=== PATIENT | male | born 1960 | race Caucasian/White ===

== ENCOUNTER 2019-10-25 05:39 | Day surgery (SDC) | payer SELFPAY, OTHER ==
[2019-10-10 08:49] VITALS: BMI 33.0
--- NOTE | 2019-10-10 09:25 | HP_ITS ---
Intake Vital Signs 10/10/19 Height 5 ft 10 in 10/10/19 Weight: 230 lb 9 oz 10/10/19 BMI 33.0 10/10/19 BP 117/72 10/10/19 Blood Pressure Location Rt brachial 10/10/19 Position Sitting 10/10/19 Respiration 18 10/10/19 Pulse 78 10/10/19 Temp 98.1 F 10/10/19 Temp Source Temporal 10/10/19 Pulse Oximetry (%) 97 Intake Visit Reasons: Inguinal hernia Chief Complaint: right inguinal hernia Cargo Surveyor Required: No Is patient in pain?: No Allergies No Known Allergies Allergy (Verified 10/10/19 08:50) Medications multivitamin,sf-hjqm-dnnkdema 1 tab PO DAILY 10/10/19 [History] PFSH Medical History (Updated 10/10/19 @ 08:48 by Bre Parkinson) Right inguinal hernia (Acute) HTN (hypertension) (Chronic) Surgical History (Updated 10/10/19 @ 08:48 by Bre Parkinson) History of eye surgery (Acute) History of knee replacement (Acute ~05/2017) Family History (Updated 10/10/19 @ 08:49 by Bre Parkinson) Father Hypertension Social History (Updated 10/10/19 @ 09:[address] Jovi Ibarra MD) Smoking Status: Never smoker HPI HPI HPI: BRITTANY THURSTON, is a 59 M who presents to the office today for HPI HPI Surgical H&P: Yes HPI: BRITTANY THURSTON, is a 59 M who presents to the office today for Right groin bulging. Patient reports for the last 2 to 3 weeks he is felt groin bulging and this is gotten worse and it is causing him tenderness especially with coughing sneezing and eating a lot of food. Patient reports that the bulge does go down when he lays down. The patient is also having bulging at his umbilicus. He has no discomfort or bulging on the contralateral side. ROS General General: No weight change, appetite, fatigue, colon cancer, breast cancer or weakness HEENT HEENT: No difficulty swallowing, eye injury, eye surgery, swollen glands or hoarseness Endo Endocrine: No thyroid disease, diabetes mellitus, thyroid cancer, Hair loss, heat intolerance or cold intolerance Musc Musculoskeletal: No back problems, arthritis, rheumatoid arthritis, gout or joint pain Cardio Cardiovascular: Yes high blood pressure; no murmur, pacemaker, heart disease, atrial fibrillation, heart attack, heart stent, palpitations, shortness of breat with exertion or chest pain Psych Psychiatric: No depression, anxiety or hearing voices Resp Respiratory: No shortness of breath, No sleep apnea, No cough, No COPD, No asthma, No emphysema, No wheezing Gastro Gastrointestinal: No abdominal pain, No nausea or vomiting, No diarrhea, No constipation, No blood in stool, No acid reflux, No hemorrhoids, No ulcers, No gallbladder problem, No black,tarry stools Additional Details: Right groin bulging and umbilical bulging Diego Hematologic: No blood thinners, No blood disorders, No bleeding, No anemia, No blood clots Neuro Neurologic: No weakness Exam Const General: cooperative Orientation: alert, oriented x3 HENMT Head: normal to inspection Ears: hearing grossly normal bilaterally Eyes General: appearance normal, both eyes and all related structures Visual Guzman: normal visual guzman by confrontation Neck Neck: normal visual inspection Chest Chest palpation & inspection: normal inspection of the chest Resp Effort & Inspection: normal respiratory effort Auscultation: clear to auscultation bilaterally Cardio Rate: regular rate Rhythm: regular rhythm Heart Sounds: no murmurs GI Inspection: non-distended Palpation: soft, hernia indirect inguinal on the right and umbilical, nontender Musc Cervical Spine: normal cervical lordosis, cervical ROM normal Skin General: no rashes or lesions noted Neuro General: alert, oriented x3 Cranial Nerves: CN's II-XI intact bilaterally Cognition: normal cognition Extrem General: normal to inspection, full ROM Psych Appearance: grossly normal Affect: normal affect Assessment & Plan Problems 1. Umbilical hernia without obstruction and without gangrene K42.9 2. Inguinal hernia, right K40.90 Plan The patient has a symptomatic right inguinal hernia which she would like to fix. I discussed open and laparoscopic repair. The patient opted for laparoscopic repair. I discussed robotic assisted laparoscopic right inguinal hernia repair with mesh. I discussed the risks including but not limited to bleeding, infection, injury to surrounding organs, injury to spermatic cord, chronic groin pain. I did discuss mesh placement with the patient as well as possibility of inflammation and groin pain due to mesh. The patient also has an umbilical hernia. Patient does not know if he would like this umbilical hernia fixed yet. He is seeking the [email or web address] to see if he would like the umbilical hernia repaired. I discussed umbilical hernia repair with mesh as well. Patient will decide tomorrow and call us to determine if he will have umbilical hernia repaired at the same time. I also discussed the possibility of a left inguinal hernia upon direct inspection and the patient would like a left inguinal hernia repaired if it is present. We discussed the current risks associated with COVID-19. While it is understood that there is a community spread of COVID-19, the risk of max COVID-19 while at [facility] ([facility]) is very low; however, the risk cannot be completely mitigated because of the community spread of the disease. We discussed in detail the risk of exposure to and/or potential harm posed by the COVID-19 virus with having a surgery/procedure at this time versus the risk of delaying the surgery/procedure. It is not possible to know either the risk of delaying the surgery or procedure or chance of getting an infection with perfect accuracy, but a joint decision was made to proceed at this time with the scheduled surgery/procedure as indicated on the consent form. Patient was notified that we will need to comply with any screening or testing [facility] wishes to perform or that surgery may be delayed for any positive results. Jovi Ibarra MD Pager: [facility] [address] [place] [address], [address] [place] [address] Office: Coding Level of Care Code Off vis,new,level 4 Diagnoses Umbilical hernia without obstruction and without gangrene K42.9 ??Obstruction and gangrene presence: without obstruction or gangrene Inguinal hernia, right K40.90 Time Spent (min) 45 10/10/19 2599 <Electronically signed by Jovi rodriguez MD> Date _ Jovi Ibarra MD I have re-examined the patient. There are no clinical changes since date of exam. The patient has decided that he would like his umbilical hernia repaired. I described open umbilical hernia repair to the patient with possible mesh. I explained that usually the umbilicus is too low for a camera port site and I would estimate an additional incision superior to the umbilicus for the camera and he understands and is willing to proceed.
--- NOTE | 2019-10-18 16:11 | EKG12_ITS ---
Test Reason : PRE OP Blood Pressure : / mmHG Vent. Rate : 077 BPM Atrial Rate : 077 BPM P-R Int : 146 ms QRS Dur : 090 ms QT Int : 378 ms P-R-T Axes : 028 050 022 degrees QTc Int : 427 ms Sinus rhythm with Premature atrial complexes Otherwise normal ECG Confirmed by MYA CARRERA, CHANDAN ([id number]), video effects editor BRITANY TIAN ([id number]) on 10/19/2019 8:51:10 AM Referred By: Jovi Ibarra Confirmed By:CHANDAN ROQUE MD
[2019-10-18 17:04] LABS: Anion Gap 4 (5-15); BUN 33 mg/dL (7-18); BUN/Creat Ratio 33.6 RATIO (10-20); Calcium,Total 8.9 mg/dL (8.5-10.1); Chloride 109 mmol/L (98-107); Creatinine, Serum 0.98 mg/dL (0.70-1.30); EST Glomerular Filtration Rate 83 mL/min (>60); Est Glom Filt Rate - Afr Amer 100 mL/min (>60); Glucose 97 mg/dL (74-106); Potassium 4.1 mmol/L (3.5-5.1); Sodium Level 138 mmol/L (136-145)
[2019-10-25 06:21] VITALS: BP 115/71; PULSE 69; RESP 16; TEMP 36.8; O2SAT 97; BMI 33.0
[2019-10-25] MEDS: Lactated Ringers 1,000 ML 100 ML IV ×2 (07:02→07:05)
--- NOTE | 2019-10-25 07:30 | HERN_PTH ---
PATIENT: BRITTANY THURSTON LOC: [facility] [place] [place] U#:[id number] AGE/SX: 59/M ROOM: RE10/25/[address]: Dr. Jovi Ibarra MD : 1960 BED: DIS: 10/25/2019 SPEC #: [id number] RECD: 10/25/19 09:54 STATUS: MILLICENT MADYSON #: [id number] MELODIE: 10/25/19 07:[address]: Jovi Ibarra DEPT: SURGICAL PATHOLOGY RECD BY: Cecilia Levin ENTERED: 10/25/19 14:42 SP TYPE: Hernia OTHR DR: Dr. Antonio Jordan DO Tissues: LIPOMA OF CORD Procedures: Surgery Specimen Level III HEADER OPERATION: Lap robotic inguinal hernia, right, umbilical hernia repair PRE-OP DIAGNOSIS: Umbilical hernia; right inguinal hernia TISSUE SUBMITTED: Lipoma of hernia cord MICROSCOPIC DIAGNOSIS Lipoma of hernia cord, excision: Mature adipose tissue consistent with lipoma of cord. AM:zulema 10/26/19 MICROSCOPIC DESCRIPTION Slides are reviewed. GROSS DESCRIPTION Received in fixative is one container labeled with the patient's name and designated lipoma of hernia sac. The specimen consists of multiple irregular fragments of yellow fatty tissue that in aggregate measure 7 x 6 x 1 cm. Serial sections reveal yellow cut surfaces. Tag Marker sections are submitted in one cassette. / AM:zulema 10/25/19 TC:1 CPT: 16414
[2019-10-25] MEDS: Cefazolin 2 GM in 0.9% Normal Saline 100 ML IV (07:31)
[2019-10-25] MEDS: Bupivacaine Mpf 0.5% 30 ML VIAL (08:00)
[2019-10-25 09:33] VITALS: BP 115/71; BP 117/72; PULSE 79; RESP 16; TEMP 35.8; O2SAT 94
--- NOTE | 2019-10-25 09:38 | OP.PCM_ITS ---
Problem List (1) Right inguinal hernia Status: Acute (2) Umbilical hernia Status: Acute Qualifiers: Obstruction and gangrene presence: without obstruction or gangrene Qualified Code(s): K42.9 - Umbilical hernia without obstruction or gangrene Report of Operation Date of Procedure: 10/25/19 Pre-Operative Diagnosis: 1. Right inguinal hernia. 2. Umbilical hernia Post-Operative Diagnosis: Same Surgery/Procedure Performed:: 1. Robotic assisted laparoscopic right inguinal hernia repair with mesh. 2. Umbilical hernia repair Specimen's removed: Lipoma of right inguinal canal Description of Procedure: Patient was brought back to the operating room and general anesthesia was induced. The abdomen was prepped and draped in usual sterile fashion. A small midline incision was created superior to the umbilicus and deepened to the fascia. The fascia was grasped and elevated and a Veress needle was placed in the abdomen and a drop test was performed. The abdomen was insufflated to 15 mmHg. The Veress needle was then removed and the camera port was placed into the abdomen. The camera was used to inspect the abdomen there were no injuries. The patient was placed in a Trendelenburg position and the inguinal canals were inspected. The left inguinal canal was intact with no hernia. The patient had a large right indirect inguinal hernia. Under direct visualization a right lateral abdominal port was placed as well as a left lateral abdominal port. The robot was then docked. Using electrocautery scissors the peritoneum was scored in the right inguinal region. Dissection was carried inferiorly until the hernia sac was encountered. The hernia sac was reduced and the adhesions were lysed. The patient also had a large lipoma in the right inguinal canal which was removed. Next pro-line construction supervisor mesh was placed over the inguinal canal and unfolded. The peritoneum was reapproximated using 3-0 V lock suture. There was a small opening in the peritoneum which was covered with the hernia sac and closed using interrupted 4-0 Vicryl suture. There was good coverage of the mesh with complete coverage at the end of the case. Next the robot was undocked. The camera port was removed. Using a Temo Jara needle under direct visualization an 0 Vicryl suture was used to close the fascia of the midline incision. Next the ports were removed and the air was allowed to desufflate from the abdomen. Next attention was paid to the umbilical hernia. A curvilinear incision was made inferior to the umbilicus and deepened to the hernia using electrocautery. The hernia was reduced and the defect was inspected and was less than 1 cm. 2 pnqsrv-ea-ejpvl 2-0 sutures were used to close the umbilical defect in a transverse fashion. Next all the incisions were injected with local anesthetic and closed with interrupted 4-0 Monocryl sutures as well as Steri-Strips and bandages. Patient was awoken and taken to PACU in stable condition and tolerated the procedure well. Grafts/Implants Used: Pro-line construction supervisor mesh in the right inguinal hernia - Admit VTE Documentation VTE Mechan Device Prophylaxis: SCD's
--- NOTE | 2019-10-25 09:44 | DCINST_ITS ---
Discharge Diet: Light diet - advance as tolerated Discharge Activity: Return to Normal Activity, May Not Drive - for 2-3 days or while taking narcotic pain meds., May Shower - with the bandage in place 1-2 days after surgery. Lifting Restrictions: 20 pounds for 4 weeks. Additional Activity Instructions:: Climbing stairs is fine, walking is encouraged. Sitting in bed may be uncomfortable. Sitting up using your lateral muscles (sitting up sideways) is usually more comfortable. Do not drive, work heavy equipment of sign legal documents for 24 hours. If your hernia repair was an ingunial repair, you may have scrotal swelling, an ice pack and/or athletic support can provide more comfort. Pain medications may cause nausea, you should typically eat light foods as you take your pain medications. Pain medications may also cause constipation. If you have difficulty with this, discuss with your doctor. Call your doctor if your incision/area has: Continuous Slow Oozing, Sudden Increased Bleeding, Increased Pain/ Swelling, Increased Redness, Foul Smelling Discharge Call your doctor if you observe: Fever of 101 or Higher Suture Line Care: Avoid Pulling/Pushing, Avoid Pinching/Bending Change Dressing in (Days):: 3 - Leave steri-strips for 1 week. May protect with a guaze bandaid. Cleanse incision/area with: Keep Dressing Clean & Dry Allergies/Adverse Reactions: Allergies No Known Allergies Allergy (Verified 10/17/19 13:03) Medications to take at Discharge multivitamin,jo-norg-mwwmwomh 1 tab PO DAILY 10/10/19 Lisinopril 20 mg PO DAILY 10/17/19 Oxycodone HCl/Acetaminophen [Percocet 5-325 mg Tablet] 1 tab PO Q6H PRN 4 Days #15 tablet 10/25/19 The following prescriptions were given: Oxycodone HCl/Acetaminophen [Percocet 5-325 mg Tablet] 1 tab PO Q6H PRN 4 Days #15 tablet PRN Reason: Pain Score 4-10/10 Transmission Status: Sent to [facility] Primary Care Physician: Antonio Jordan DO [Primary Care Provider] - Test Results: Test results from this visit will be discussed in further detail at your follow- up appointment, if applicable. Please Follow Up With: Jovi Ibarra MD When: Please call to schedule 2 week follow up appointment. [phone]
[2019-10-25 09:45] VITALS: BP 104/66; BP 115/71; PULSE 67; RESP 16; O2SAT 89
[2019-10-25 10:00] VITALS: BP 115/71; BP 98/59; PULSE 57; RESP 16; O2SAT 94
[2019-10-25 10:15] VITALS: BP 110/72; BP 115/71; PULSE 96; RESP 16; TEMP 36; O2SAT 96
[2019-10-25] MEDS: Acetaminophen 325 MG Tablet PO (10:55)
[2019-10-25] MEDS: oxyCODONE 5 MG Tablet PO (10:55)
[2019-10-25 11:45] VITALS: BP 115/71; BP 123/71; PULSE 62; RESP 16; TEMP 36.3; O2SAT 96
== END 2019-10-25 11:58 | disposition home or self-care (01) ==
LOC: SDC 05:40 → AC 05:41
PROVIDERS: Anesthesiology; PCP Family Medicine; Referring Provider Surgery; Visit Provider Surgery
PROC: (CPT 49585; principal; 2019-10-25 07:10)
DX: K40.90 Unilateral inguinal hernia, without obstruction or gangrene, not specified as recurrent (principal); K42.9 Umbilical hernia without obstruction or gangrene; D17.6 Benign lipomatous neoplasm of spermatic cord; I49.1 Atrial premature depolarization; I10 Essential (primary) hypertension; E78.00 Pure hypercholesterolemia, unspecified; Z79.899 Other long term (current) drug therapy; Z20.828 Contact with and (suspected) exposure to other viral communicable diseases
CPT/HCPCS: 00840; 49585; 49650; S2900; 36415; 80048; 87635; 88304; 93005; G2023; J7120; J2405; U0003

== ENCOUNTER → 2020-07-13 14:11 | Outpatient (CLI) | payer OTHER, SELFPAY ==
[2020-07-13 15:23] LABS: Absolute Lymphocyte Count 1.59 X10^3/uL (0.83-4.51); Absolute Neutrophil Count 7.4 X10^3/uL (2.0-7.7); Basophil# 0.05 X10^3/uL; Basophil% 0.5 % (0-1); Eosinophil# 0.37 X10^3/uL; Eosinophils% 3.7 % (0-5); Hematocrit 41.3 % (40-54); Hemoglobin 13.4 g/dL (13.0-16.5); Lymphocyte # 1.59 X10^3/ul (0.83-4.51); Lymphocyte % 15.9 % (19-41); Mean Corp Hgb Conc 32.4 g/dL (32-36); Mean Corpuscular Hgb 28.6 pg (27.0-32.0); Mean Corpuscular Volume 88.2 fL (80-94); Mean Platelet Vol. 11.2 fl (6.2-12.0); Monocyte# 0.62 X10^3/uL; Monocyte% 6.2 % (0-10); NRBC Flagged by Analyzer 0 % (0-5); Neutrophil # 7.36 X10^3/uL (2.7-7.7); Neutrophil % 73.4 % (47-70); Platelet Count 287 K/mm3 (150-450); RBC Distribution Width CV 12.8 % (11.6-14.6); RBC Distribution Width SD 41.2 fl (35.1-43.9); Red Blood Count 4.68 M/mm3 (4.6-6.2)
[2020-07-13 15:43] LABS: Erythrocyte Sedimentation Rate 11 mm/hr (0-20)
[2020-07-13 15:53] LABS: CRP 5.37 mg/L (0.0-3.0)
== END ==
PROVIDERS: PCP Family Medicine; Referring Provider Orthopaedic Surgery; Visit Provider Orthopaedic Surgery
DX: M25.461 Effusion, right knee (principal)
CPT/HCPCS: 36415; 85025; 85652; 86140

== ENCOUNTER 2024-07-07 08:07 | Emergency (ER) | payer OTHER, SELFPAY ==
[2024-07-07 08:07] VITALS: BP 153/98; PULSE 109; RESP 23; TEMP 36.7; O2SAT 96; BMI 35.1
--- NOTE | 2024-07-07 08:32 | CT_ITS ---
EXAM: CT Head Without Intravenous Contrast CLINICAL INDICATION: REPORTED HALLUCINATIONS TECHNIQUE: Axial computed tomography images of the head/brain without intravenous contrast. This CT exam was performed using one or more of the following dose reduction techniques: automated exposure control, adjustment of the mA and/or kV according to patient size, and/or use of iterative reconstruction technique. COMPARISON: No relevant prior studies available. FINDINGS: BRAIN AND EXTRA-AXIAL SPACES: No acute intracranial hemorrhage, midline shift or mass effect. If symptoms persist, further evaluation with MRI is recommended. No significant white matter disease. BONES/JOINTS: Unremarkable. No acute fracture. SOFT TISSUES: Unremarkable. SINUSES: Unremarkable as visualized. No acute sinusitis. MASTOID AIR CELLS: Unremarkable as visualized. No mastoid effusion. CT/Brain/Head without Contrast IMPRESSION: No acute intracranial hemorrhage, midline shift or mass effect. If symptoms per sist, further evaluation with MRI is recommended. Reading [facility]
--- NOTE | 2024-07-07 08:32 | EKG12_ITS ---
Test Reason : ALT LOC Blood Pressure : */* mmHG Vent. Rate : 106 BPM Atrial Rate : 106 BPM P-R Int : 150 ms QRS Dur : 90 ms QT Int : 346 ms P-R-T Axes : 32 15 13 degrees QTcB Int : 459 ms Sinus tachycardia with Premature atrial complexes Otherwise normal ECG Confirmed by Uday Neal ([id number]), desk editor BRITANY TIAN ([id number]) on 07/11/2024 6:36:46 AM Referred By: MIESHA Confirmed By: Uday Neal
--- NOTE | 2024-07-07 08:39 | EDS_ITS ---
HPI History of Present Illness Chief Complaint: Alt LOC Narrative Narrative: Chief complaint and HPI: Depression. 64-year-old male with past medical history of HTN presents for evaluation of depression. history taken by patient as well as son. Patient's Donya recently elected to be sent to [place] to a [facility] last week for her depres and adelfo. states since her leaving he has been very emotional and just wants to be with. He endorses frequent crying, decreased appetite, insomnia. He denies any suicidal or homicidal ideation. He denies any visual or auditory hallucinations. Patient went to work today and laid on the floor and said I just cannot do it anymore and EMS was called. Complaints states altered LOC. Patient is not altered. He is alert and oriented x 4. Son in the room also does not feel that his father is confused or altered. Nursing states that the patient was talking to his in the room. I did not witness this. His son did not witness this. Instead patient is periodically just yelling out his 's name. He states that he does not see her in the room. he denies any fever, chills, headache, chest pain, shortness of breath, abdominal pain, nausea, vomiting, dysuria, diarrhea. States he has been showering. Review of systems: See HPI Medications: As listed on the chart Allergies: As listed on the chart PFSH: Per chart Vital signs: As listed on the chart. Reviewed. Physical exam: Gen: A&O x3, NAD Head: Normocephalic, atraumatic Eyes: No sclera icterus, conjunctiva clear ENT: Moist mucous membranes Neck: Trachea midline, No JVD CV: RRR, no murmurs, no peripheral edema Resp: Lungs CTA BL, no w/r/c GI: Abd soft, non-distended, non-tender, no r/r/g Musc: Full ROM, no deformity Skin: Warm, dry Neuro: Alert, oriented, grossly intact, sensation intact Psych: Cooperative, appropriate mood and affect [facility] Medical History Umbilical hernia Right inguinal hernia HTN (hypertension) Home Medications ?Medication ?Instructions ?Recorded ?Last Taken ?Type multivitamin,oc-lidl-skbyuseh 1 tab PO DAILY 10/10/19 Unknown History (Complete Multivitamin tablet) lisinopril 20 mg tablet 20 mg PO DAILY 10/17/1909/28 04:45 History Allergy/AdvReac Type Severity Reaction Status Date / Time No Known Allergies Allergy Verified 07/07/24 08:13 Family History Father Hypertension Surgical History History of umbilical hernia repair (~10/25/19) history robotic assisted laparoscopic right inguinal hernia (~10/25/19) History of eye surgery History of knee replacement (~05/2017) Social History (Updated 11/08/19 @ 14:[address] Jovi Ibarra MD) Smoking Status: Never smoker EXAM Physical Exam Const Vital Signs: 07/07/24 08:07 07/07/24 09:09 07/07/24 10:09 Temperature 98.0 F Temperature Source Oral Pulse Rate 109 H Respiratory Rate 23 H Blood Pressure 153/98 H 134/78 H 120/71 Blood Pressure Mean 116 96 87 Pulse Ox 96 Oxygen Delivery Method Room Air MDM MDM MDM Narrative Medical decision making narrative: 64-year-old male with past medical history of HTN presents for evaluation of depression after his was sent to a mental hospital a week ago. Triage note states that patient is altered. Patient is not altered. He is alert and oriented x 4. He denies any suicidal or homicidal ideation. Denies any visual auditory hallucinations. Triage note states that he is talking to his in the room. I did not witness this. He does periodically yell out her name and states he wants to be with her. He endorses depression-like symptoms. Decreased p.o. intake, insomnia, and frequent client crying. Differential diagnosis includes but is not limited to adjustment disorder, depression, el ectrolyte abnormality, dehydration, DONAVON, substance intoxication. Suspect less likely intracranial abnormality or thyroid disease. Basic labs ordered with CT of the head. NS bolus ordered as patient is mildly dehydrated on physical exam. Social work will be consulted. CBC without leukocytosis or anemia. CMP shows mild dehydration without DONAVON. No transaminitis. TSH unremarkable. Urine drug screen negative. Serum alcohol level negative. UA negative for UTI. CT head without any acute intracranial abnormality. Again patient is alert and oriented x 4 on my assessment. At this point in time, no medical cause for patient's symptoms. Suspect that it is secondary to adjustment disorder/depression. On reevaluation, patient states that he is feeling much better. He was able to get some sleep in emergency department. However, we will still have social work evaluate the patient. Social work evaluated the patient. Patient as well as family comfortable with discharging home. They state that they may get him involved with outpatient resources with the [facility]. Patient is not suicidal or homicidal. No auditory visual hallucinations. No paranoia. I do feel this is acceptable. Patient stable to discharge home. Impression: 1. Depression/adjustment disorder 2. Mild dehydration Lab Data Labs: Laboratory Results - last 24 hr 07/07/24 07/07/24 08:13 08:52 WBC 9.4 RBC 5.03 Hgb 15.2 Hct 44.1 MCV 87.7 MCH 30.2 MCHC 34.5 RDW Std Deviation 39.8 RDW Coeff of Boogie 12.4 Plt Count 296 MPV 10.7 Immature Gran % (Auto) 0.400 Neut % (Auto) 76.6 H Lymph % (Auto) 13.9 L [place] % (Auto) 8.1 Eos % (Auto) 0.6 Baso % (Auto) 0.4 Absolute Neuts (auto) 7.2 Absolute Lymphs (auto) 1.30 Nucleated RBC % 0 Sodium 137 Potassium 3.8 Chloride 104 Carbon Dioxide 20.2 L Anion Gap 13 BUN 23 H Creatinine 0.92 Estim Creat Clear Calc 101.20 Est GFR (MDRD) Non-Af 93 BUN/Creatinine Ratio 25.4 H Glucose 143 H Calcium 9.3 Total Bilirubin 0.39 AST 19 ALT 23 Alkaline Phosphatase 66 Total Protein 6.7 Albumin 4.0 Globulin 2.8 Albumin/Globulin Ratio 1.4 TSH 1.610 Urine Color Yellow Urine Clarity Clear Urine pH 7.0 Ur Specific [place] 1.010 Urine Protein 30 H Urine Glucose (UA) Normal Urine Ketones Negative Urine Occult Blood Negative Urine Nitrite Negative Urine Bilirubin Negative Urine Urobilinogen Normal Ur Leukocyte Esterase Negative Urine RBC 0 SEEN Urine WBC 0-5 SEEN Ur Squamous Epith Cells 0 SEEN Urine Bacteria 0 SEEN Urine Mucus 1+ Urine Opiates Screen NEGATIVE U Buprenorphine Qual NEGATIVE Ur Oxycodone Screen NEGATIVE Urine Methadone Screen NEGATIVE Urine Fentanyl Screen NEGATIVE Ur Barbiturates Screen NEGATIVE Ur Phencyclidine Scrn NEGATIVE Ur Amphetamines Screen NEGATIVE U Benzodiazepines Scrn NEGATIVE Urine Cocaine Screen NEGATIVE U Cannabinoids Screen NEGATIVE Ethyl Alcohol < 10.1 Radiography Diagnostic Testing: Clinical Impression(s) from Imaging Studies Brain CT 07/07/24 08:32 IMPRESSION: No acute intracranial hemorrhage, midline shift or mass effect. If symptoms persist, further evaluation with MRI is recommended. Reading Location: [facility] Discharge Plan Triage Chief Complaint: Alt LOC ED Provider: Bennie Sanford Dx/Rx/DC Orders Prescriptions: No Action Complete Multivitamin Tablet 1 tab PO DAILY lisinopril 20 MG tablet 20 mg PO DAILY Primary Care Provider: Jennifer Tapia PRODUCT MANUFACTURING PROFESSIONAL Referrals: Antonio Jordan DO [Non-Staff] - Print Language: Turkmen
[2024-07-07 08:54] LABS: Absolute Neutrophil Count 7.2 X10^3/uL (2.0-7.7); Basophil# 0.04 X10^3/uL; Basophil% 0.4 % (0-1); Eosinophil# 0.06 X10^3/uL; Eosinophils% 0.6 % (0-5); Hematocrit 44.1 % (40-54); Hemoglobin 15.2 g/dL (13.0-16.5); Lymphocyte % 13.9 % (19-41); Mean Corp Hgb Conc 34.5 g/dL (32-36); Mean Corpuscular Hgb 30.2 pg (27.0-32.0); Mean Corpuscular Volume 87.7 fL (80-94); Mean Platelet Vol. 10.7 fl (6.2-12.0); Monocyte# 0.76 X10^3/uL; Monocyte% 8.1 % (0-10); NRBC Flagged by Analyzer 0 % (0-5); Neutrophil # 7.18 X10^3/uL (2.7-7.7); Neutrophil % 76.6 % (47-70); Platelet Count 296 K/mm3 (150-450); RBC Distribution Width CV 12.4 % (11.6-14.6); RBC Distribution Width SD 39.8 fl (35.1-43.9); Red Blood Count 5.03 M/mm3 (4.6-6.2); White Blood Count 9.4 K/mm3 (4.4-11.0)
[2024-07-07 09:09] VITALS: BP 134/78
[2024-07-07] MEDS: 0.9% Normal Saline (1000mL) 1,000 ML 999 ML IV (09:12)
[2024-07-07 09:43] LABS: ALB/GLOB Ratio 1.4 RATIO (0.9-2.4); AST(SGOT) 19 U/L (<=37); Alanine Aminotransfer ALT/SGPT 23 U/L (<=46); Alkaline Phosphatase 66 U/L (40-129); Anion Gap 13 (5-15); BUN 23 mg/dL (4-19); BUN/Creat Ratio 25.4 RATIO (10-20); Calcium,Total 9.3 mg/dL (7.6-11.0); Carbon Dioxide 20.2 mmol/L (21.0-32.0); Chloride 104 mmol/L (98-108); Creatinine, Serum 0.92 mg/dL (0.70-1.20); EST Glomerular Filtration Rate 93 (>60); Globulin 2.8 g/dL (2.2-4.2); Glucose 143 mg/dL (70-99); Potassium 3.8 mmol/L (3.3-5.1); Protein, Total 6.7 g/dL (5.9-8.4); Sodium Level 137 mmol/L (133-145); Total Bilirubin 0.39 mg/dL (0.00-1.30)
[2024-07-07 09:47] LABS: Alcohol, Blood (Medical)-Serum < 10.1 mg/dL (<=10.0)
[2024-07-07 09:51] LABS: Amphetamine Urine NEGATIVE (<1000 ng/mL); Barbiturate Urine NEGATIVE (< 200 ng/mL); Benzodiazepine Urine NEGATIVE (< 200 ng/mL); Buprenorphine Urine NEGATIVE (< 200 ng/mL); Cocaine Urine NEGATIVE (< 300 ng/mL); Fentanyl, Urine NEGATIVE; Methadone Urine NEGATIVE (< 300 ng/mL); Opiates Urine NEGATIVE (< 300 ng/mL); Oxycodone, Urine NEGATIVE (< 100 ng/mL); PCP Urine NEGATIVE (< 25 ng/mL); THC Urine NEGATIVE (< 50 ng/mL)
[2024-07-07 09:57] LABS: Bacteria 0 SEEN /hpf (None Seen); Red Blood Cells-Urine 0 SEEN /hpf (0-5); Squamous Epithelial Cells - UA 0 SEEN /hpf (0-5)
[2024-07-07 09:59] LABS: Color, Urine Yellow (Yellow); Glucose, Dipstick Normal (Normal); Ketone-Dipstick Negative (Negative); Leukocyte Esterase-Dipstick Negative /ul (Negative); Nitrite-Dipstick Negative (Negative); Occult Blood-Urine Negative /ul (Negative); Protein-Dipstick 30 mg/dl (Negative); Urine Bilirubin Dipstick Negative (Negative); Urine Clarity Clear (Clear); Urine Urobilinogen Normal (Normal)
[2024-07-07 10:09] VITALS: BP 120/71
[2024-07-07 10:25] LABS: Mucous, Urine 1+ /hpf (<or=2+); White Blood Cells 0-5 SEEN /hpf (0-5)
--- NOTE | 2024-07-07 10:48 | CM.ED ---
Social Work SW met with patients son prior to entering patients room. Patients son stated that patients , his mother, was sent to an inpatient psychiatric facility for the [facility] last week and they anticipate her being away for a few months. Patients son stated that patient was having a hard time dealing with the separation. Patients son further stated that they, meaning the family and their cheondoism, had discussed patient being admitted to the same program as his or a similar program in [place]. Patients son states they brought patient in because they were unable to tell if patient was having an anxiety attack or heart issues. Patients son went to waiting room while SW met with patient. Patient expressed much of the same information as given by the son. Patient explained that he and his have been together for 41 years and the separation is very hard on him. Patient states he and his had 12 children, one from cancer 17 years ago, and 2 of the boys still live at home but they are busy and patient is often alone. Patient expressed that he is having trouble sleeping this week, stating he is only getting 1-3 hours of sleep each night and he felt that it all caught up with him today. Patient also discussed the inpatient program in [place], stating that his children feel it would be a good idea so he is okay with going. Patient denied any SI or HI, states he has had no appetite disturbance, and is not experiencing any auditory or visual hallucinations. Patient was calm and open during discussion. Patient and son state that the carpio of their cheondoism is arranging for patients treatment. No further needs identified at this time. Bailey Simon, [employer]RE[employer] REPA[employer], MANAGER LATIN
== END 2024-07-07 10:51 | disposition home or self-care (01) ==
PROVIDERS: Emergency Provider Surgery; PCP Nurse Practitioner Family; Visit Provider Surgery
DX: F43.21 Adjustment disorder with depressed mood (principal); E86.0 Dehydration; I10 Essential (primary) hypertension; Z63.32 Other absence of family member; Z79.899 Other long term (current) drug therapy
CPT/HCPCS: 70450; 80053; 80307; 81001; 82077; 84443; 85025; 93005; 96360; 99284; A4216